=== PATIENT | male | born 1965 | race Hispanic/Latino ===

== ENCOUNTER 2019-10-31 23:13 | Observation (INO) | payer OTHER, SELFPAY ==
[2019-11-01 01:48] VITALS: BMI 34.6
[2019-11-01] MEDS ORDERED: Acetaminophen 325 MG TAB PO PRN (02:22)
--- NOTE | 2019-11-01 03:02 | HP ---
REASON FOR ADMISSION: Shortness of breath. 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 He lost his sense of taste and smell, and he has been coughing, not producing any phlegm and today, his cough got worse, became short of breath on ambulation, which prompted him to go to the emergency room. His lab and radiological findings were indicating high suspicion for COVID-19. He was given IV Decadron and Lovenox and sent to us for further management. The patient is currently on the COVID-19 unit. When I went to see him, he appears to be very comfortable, in no acute distress. He was coughing a little bit, but otherwise no other symptoms reported except for severe fatigue that has been ongoing since the weekend. PAST MEDICAL HISTORY: The patient does not have any past medical history. SOCIAL HISTORY: Does not smoke. Does not drink alcohol. ALLERGIES: NO NOTE OF ANY DRUG ALLERGY. FAMILY HISTORY: Negative for heart disease. REVIEW OF SYSTEMS: All systems reviewed except the above mentioned, found to be negative. PHYSICAL EXAMINATION: GENERAL: Awake, alert, oriented, does not appear in distress. VITAL SIGNS: His blood pressure is 132/80, temperature is 98 degrees, and saturating 95% on 2 L nasal cannula. HEENT: Head is nontraumatic and normocephalic. Pupils equal, reactive. Extraocular movements are intact. Nonicteric sclerae. Well injected conjunctivae. Oral mucosa normal. Nasal mucosa normal. NECK: Supple. No adenopathy. No murmur. Thyroid is not palpable. Trachea is midline. No supraclavicular lymphadenopathy. HEART: S1 and S2 regular. No murmur. No gallops. No friction rubs. No displacement of PMI. LUNGS: Inspiratory crackles at bilateral bases. ABDOMEN: Bowel sounds are positive. Nontender abdomen. No hepatosplenomegaly. EXTREMITIES: No lower extremity edema. No cyanosis. NEUROLOGIC: Cranial nerves 2 through 12 within normal limits. Normal motor function. Normal sensory function. Normal reflexes. LABORATORY DATA: Blood work shows WBC of 9, hemoglobin 16.9, platelets of 237, neutrophil count 80%. D-dimer 0.7. Sodium 138, potassium 4.1, BUN 14, creatinine 1, glucose of 108. AST 89, ALT 90, alkaline phosphatase 145. CRP 16.47. A CT of the chest showed no PE, but did show findings suspicious for COVID-19 pneumonia. 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 We are redoing his rapid test. He did have a test done 24 hours ago and that is still pending, but clinically he does have evidence of COVID-19. The patient will be on IV Decadron and we will provide him with oxygen. For deep venous thrombosis prophylaxis, he will be on Lovenox. Job ID: [id number]
[2019-11-01 04:59] LABS: SARS-CoV-2 NAA Rapid Test DETECTED (NotDetected)
[2019-11-01 05:36] LABS: Anion Gap 14 mmol/L (10-20); BUN (Urea Nitrogen) 16 mg/dL (8.4-25.7); Calc. Creatinine Clearance 120 mL/min (70-130); Calcium 9.1 mg/dL (7.8-10.44); Carbon Dioxide 24 mmol/L (23-31); Chloride 103 mmol/L (98-107); Estimated GFR-MDRD 75; Glucose 159 mg/dL (80-115); Potassium 4.4 mmol/L (3.5-5.1); Sodium 137 mmol/L (136-145)
[2019-11-01 06:37] LABS: Hemoglobin 15.5 g/dL (14.0-18.0); Mean Corpuscular HGB CONC 32.8 g/dL (32.0-36.0); Mean Corpuscular Hemoglobin 31.9 pg (27.0-31.0); Mean Corpuscular Volume 97.4 fL (78.0-98.0); Mean Platelet Volume 7.2 fL (7.4-10.4); Platelet Count 225 thou/uL (130-400); RBC Distribution Width 11.6 % (11.5-14.5); Red Blood Cell (RBC) Count 4.84 mill/uL (4.70-6.10); White Blood Cell (WBC) Count 6.3 thou/uL (4.8-10.8)
[2019-11-01 06:49] LABS: Band 11 % (5-11); Lymphocytes 11 % (21-51); MDiff Complete? YES; Monocytes 2 % (0-10); Neutrophil 76 % (42-75)
[2019-11-01] MEDS ORDERED: Dexamethasone 6 MG in Sodium Chloride 0.9% 50 ML IVPB SCH (09:00)
[2019-11-01] MEDS ORDERED: Enoxaparin Sodium 40 MG/0.4 ML SYRINGE SC SCH (09:00)
[2019-11-01] MEDS ORDERED: Dexamethasone Sod Phosphate 6 MG in Sodium Chloride 0.9% 50 ML IVPB SCH (09:00)
[2019-11-01 16:42] VITALS: BP 136/87; TEMP 98.6
--- NOTE | 2019-11-01 20:54 | DIS ---
DATE OF ADMISSION: 10/31/2019 DATE OF DISCHARGE: 11/01/2019 HOSPITAL COURSE: Mr. Pike is a 54-year-old male, with no medical history, who presented with worsening shortness of breath. He was diagnosed with COVID the week prior to presentation. Initially, he fared well, however, in the past few days prior to presentation became increasingly tired and short of breath. During his inpatient stay, he required short duration of oxygen supplementation in the form of 2 L nasal cannula. He was treated with Decadron and promptly improved. At the time of discharge, he was saturating in the high 90s on room air. However, despite that, was prescribed home oxygen for further management of COVID pneumonia at home. PHYSICAL EXAMINATION: VITAL SIGNS: Blood pressure 136/87, pulse 90, respiratory rate 20, oxygen saturation 98% on room air, and temperature 98.6. GENERAL: Lying comfortably in bed. Awake and alert. HEENT: Normocephalic and atraumatic. No head or neck lymphadenopathy. CARDIAC: Regular rate and rhythm. No murmurs, gallops, or rubs. LUNGS: Clear to auscultation bilaterally. No wheezing, rales, or rhonchi. ABDOMEN: Soft, nontender, and nondistended. Normal bowel sounds. EXTREMITY: No edema. PSYCHIATRIC: Proper mood and affect. Alert and oriented x3. MEDICATION LIST: New medications: Decadron 6 mg p.o. daily for six more days. Continued medications: No continued medications. Modified medications: No modified medications. Discontinued medications: No discontinued medications. Job ID: [id number]
== END 2019-11-01 19:15 | disposition home or self-care (01) ==
LOC: 2SW 23:14 → EDBD 23:14
PROVIDERS: ADMIT Internal Medicine; ATTEND Internal Medicine
DX: U07.1 COVID-19 (principal); J12.89 Other viral pneumonia
CPT/HCPCS: 36415; 80048; 85025; 96372; 96374; G0378; J1650; U0002